=== PATIENT | male | born 1945 | race Caucasian/White ===

== ENCOUNTER 2024-03-13 13:55 | Inpatient (IN) | payer MEDICAID ==
[~2024-03-13] VITALS: Ht 172.7 cm; Wt 68.0 kg
[2024-03-13] MEDS ORDERED: CEFTRIAXONE /D5W 50ML IVPB **ER PYXIS IV ONE (14:18)
[2024-03-13] MEDS ORDERED: VANCOMYCIN IV 200 ML ONE (14:18)
[2024-03-13] MEDS: CEFTRIAXONE 1 G in IV DEXTROSE 5% 50 ML IV ONE (14:27)
[2024-03-13] MEDS: IV NORMAL SALINE 1000 ML BAG IV ONE (14:27)
[2024-03-13 14:39] LABS: BASOPHILS % (AUTO) 0.3 % (0.0-2.0); EOSINOPHILS % (AUTO) 0.2 % (0.0-7.0); HEMATOCRIT 32.6 % (36.7-47.1); HEMOGLOBIN 10.8 g/dL (12.5-16.3); LYMPHOCYTES % (AUTO) 28.7 % (20.5-51.5); MEAN CORPUSCULAR HEMOGLOBIN 31.5 uug (23.8-33.4); MEAN CORPUSCULAR HGB CONC 33 g/dL (32.5-36.3); MEAN CORPUSCULAR VOLUME 95.5 fL (73.0-96.2); MONOCYTES # (AUTO) 0.3 K/uL (0.1-1.30); MONOCYTES % (AUTO) 8.4 % (0.0-11.0); NEUTROPHILS # (AUTO) 2.2 K/uL (1.8-8.9); NEUTROPHILS % (AUTO) 62.4 % (38.5-71.5); PLATELET COUNT (AUTO) 221 K/uL (152-348); RED BLOOD CELL COUNT(AUTO) 3.42 MIL/uL (4.06-5.63); RED CELL DISTRIBUTION WIDTH 16.3 % (12.1-16.2); WHITE BLOOD COUNT (AUTO) 3.6 K/uL (3.6-10.2)
[2024-03-13 14:40] LABS: DIFFERENTIAL COMMENT 1
[2024-03-13 14:42] LABS: CALCIUM 9.1 mg/dL (8.5-10.1); CARBON DIOXIDE 23 mmol/L (21-32); CHLORIDE 105 mmol/L (98-107); CREATININE 0.9 mg/dL (0.6-1.3); GLUCOSE 126 mg/dL (74-106); POTASSIUM 4.2 mmol/L (3.5-5.1); SODIUM SERUM 140 mmol/L (136-145); UREA NITROGEN, BLOOD 16 mg/dL (7-18)
[2024-03-13] MEDS: VANCOMYCIN IV 1,000 MG in IV DEXTROSE 5% 250 ML IV ONE (14:53)
[2024-03-13 14:55] LABS: ALANINE AMINOTRANSFERASE 58 U/L (16-63); ALBUMIN 2.8 g/dL (3.4-5.0); ALKALINE PHOSPHATASE 248 U/L (50-136); ASPARTATE AMINOTRANSFERASE 17 U/L (15-37); BILIRUBIN,DIRECT 0.2 mg/dL (0.0-0.2); BILIRUBIN,TOTAL 0.3 mg/dL (0.2-1.0); NT-PRO BNP 214 pg/mL (0-125); TOTAL PROTEIN, SERUM 7.5 g/dL (6.4-8.2)
[2024-03-13] MEDS ORDERED: REMEDY ESSENTIAL ZINC PASTE 113 GM TP PRN (16:15)
[2024-03-13] MEDS ORDERED: MAGNESIUM HYDROXIDE 30 ML LIQUID UDC PO PRN (16:15)
[2024-03-13] MEDS ORDERED: ONDANSETRON 4 MG/2 ML VIAL IV PRN (16:15)
[2024-03-13 17:13] LABS: *BILIRUBIN,URIN NEGATIVE (NEGATIVE); *BLOOD, URINE NEGATIVE (NEGATIVE); *CLARITY,URINE CLEAR (CLEAR); *COLOR,URINE YELLOW (YELLOW); *KETONES,URINE NEGATIVE (NEGATIVE); *PROTEIN,URINE NEGATIVE (NEGATIVE); *UROBILINOGEN,URINE 0.2 E.U./dl (NORMAL); LEUKOCYTE ESTERASE ,URINE NEGATIVE (NEGATIVE); NITRITE, URINE NEGATIVE (NEGATIVE); PH,URINE 6.5 (5.0-8.0); UGLUCOSE NEGATIVE (NEGATIVE)
[2024-03-13 20:58] VITALS: BP 123/63; TEMP 97.7; O2SAT 98
[2024-03-13] MEDS ORDERED: IBUP-1490 PO (22:53)
[2024-03-13] MEDS ORDERED: DONE5TAB34 PO (22:53)
[2024-03-13] MEDS ORDERED: ASCO500T85 PO (22:53)
[2024-03-13] MEDS ORDERED: ALBU90AE INH (22:53)
[2024-03-13] MEDS ORDERED: MAGN400O6 PO ×2 (22:53)
[2024-03-13] MEDS ORDERED: HALO5TAB PO (22:53)
[2024-03-13] MEDS ORDERED: DOCU100T2 PO (22:53)
[2024-03-13] MEDS ORDERED: ZINC220T4 PO (22:53)
[2024-03-14] MEDS ORDERED: CLINDAMYCIN 600 MG PIGGYBACK**ER OMNI IV ONE ×2 (00:14→05:54)
[2024-03-14] MEDS: CLINDAMYCIN PHOSPHATE IV 600 MG in IV DEXTROSE 5% 100 ML IV SCH (00:27)
[2024-03-14 06:10] VITALS: BP 124/68; TEMP 97.6; O2SAT 99
[2024-03-14 06:45] LABS: BASOPHILS % (AUTO) 0.4 % (0.0-2.0); EOSINOPHILS % (AUTO) 0.3 % (0.0-7.0); HEMATOCRIT 30.6 % (36.7-47.1); HEMOGLOBIN 10.2 g/dL (12.5-16.3); LYMPHOCYTES # (AUTO) 0.9 K/uL (0.8-4.8); LYMPHOCYTES % (AUTO) 28.2 % (20.5-51.5); MEAN CORPUSCULAR HEMOGLOBIN 31.8 uug (23.8-33.4); MEAN CORPUSCULAR HGB CONC 33 g/dL (32.5-36.3); MEAN CORPUSCULAR VOLUME 95.4 fL (73.0-96.2); MONOCYTES # (AUTO) 0.4 K/uL (0.1-1.30); MONOCYTES % (AUTO) 11.4 % (0.0-11.0); NEUTROPHILS % (AUTO) 59.7 % (38.5-71.5); PLATELET COUNT (AUTO) 207 K/uL (152-348); RED CELL DISTRIBUTION WIDTH 15.4 % (12.1-16.2); WHITE BLOOD COUNT (AUTO) 3.3 K/uL (3.6-10.2)
[2024-03-14 06:58] LABS: DIFFERENTIAL COMMENT 1
[2024-03-14 07:12] LABS: CALCIUM 8.8 mg/dL (8.5-10.1); CREATININE 0.9 mg/dL (0.6-1.3); MAGNESIUM 2.2 mg/dL (1.8-2.4); POTASSIUM 4.5 mmol/L (3.5-5.1)
[2024-03-14 07:38] LABS: PHOSPHOROUS 2.8 mg/dL (2.5-4.9)
[2024-03-14] MEDS ORDERED: MAGNESIUM HYDROXIDE 30 ML LIQUID UDC PO PRN ×2 (10:15)
[2024-03-14] MEDS ORDERED: DOCUSATE SODIUM 100 MG CAPSULE PO PRN (10:15)
[2024-03-14] MEDS ORDERED: IBUPROFEN 600 MG TABLET PO PRN (10:15)
[2024-03-14 12:00] VITALS: BP 156/78; TEMP 98; O2SAT 99
[2024-03-14 15:55] VITALS: BP 120/78; TEMP 98; O2SAT 98
[2024-03-14] MEDS: HALOPERIDOL 5 MG TABLET PO SCH (17:10)
[2024-03-14 19:56] VITALS: BP 116/70; TEMP 98; O2SAT 99
[2024-03-14] MEDS: DONEPEZIL 5 MG TABLET PO SCH (20:36)
[2024-03-15 06:00] VITALS: BP 105/52; TEMP 98.1; O2SAT 98
[2024-03-15] MEDS: ZINC SULFATE 220 MG CAPSULE PO SCH (08:55)
[2024-03-15] MEDS: ASCORBIC ACID 500 MG TABLET PO SCH (08:56)
[2024-03-15 12:17] VITALS: BP 120/68; TEMP 97.6; O2SAT 99
[2024-03-15 16:14] VITALS: BP 118/67; TEMP 97.8; O2SAT 99
[2024-03-15 20:50] VITALS: BP 102/51; TEMP 98.1; O2SAT 98
[2024-03-16 05:40] VITALS: BP 129/65; TEMP 98.1; O2SAT 99
[2024-03-16 08:00] VITALS: BP 137/61; TEMP 97.4; O2SAT 99
[2024-03-16 12:00] VITALS: BP 123/78; TEMP 98.3; O2SAT 99
[2024-03-16 16:00] VITALS: BP 110/64; TEMP 97; O2SAT 97
[2024-03-16] MEDS: SODIUM HYPOCHLORITE 0.125% (QUARTER STRENGTH) 473 ML BOTTLE TP SCH (16:02)
[2024-03-17] MEDS: SILVER NITRATE APPLICATOR STICK EACH TP STA (11:38)
[2024-03-17] MEDS: LIDOCAINE 2%-EPI 1:100,000 20 ML VIAL TP STA (11:38)
[2024-03-17] MEDS: ACETAMINOPHEN 325 MG TABLET PO PRN (12:15)
[2024-03-17] MEDS ORDERED: CLIN300C12 PO (12:57)
[2024-03-17 15:50] VITALS: BP 116/63; TEMP 97.9; O2SAT 98
[2024-03-17] MEDS ORDERED: CLINDAMYCIN HCL 300 MG CAPSULE PO SCH (22:00)
== END 2024-03-17 16:40 | DRG 364 ==
LOC: ER 13:55 → MEDSURG3 20:06
PROVIDERS: ADMIT Internal Medicine; ATTEND Internal Medicine
PROC: 0HB1XZX Excision of Face Skin, External Approach, Diagnostic (ICD-10-PCS; principal; 2024-03-17)
PROC: 0J973ZX Drainage of Back Subcutaneous Tissue and Fascia, Percutaneous Approach, Diagnostic (ICD-10-PCS; principal; 2024-03-17)
PROC: 0KBG0ZZ Excision of Left Trunk Muscle, Open Approach (ICD-10-PCS; 2024-03-17)
DX: L02.414 Cutaneous abscess of left upper limb (principal); E43 Unspecified severe protein-calorie malnutrition; L03.312 Cellulitis of back [any part except buttock and flank]; F25.9 Schizoaffective disorder, unspecified; E88.09 Other disorders of plasma-protein metabolism, not elsewhere classified; G30.9 Alzheimer's disease, unspecified; C44.329 Squamous cell carcinoma of skin of other parts of face; F02.80 Dementia in other diseases classified elsewhere, unspecified severity, without behavioral disturbance, psychotic disturbance, mood disturbance, and anxiety; L03.211 Cellulitis of face; R53.81 Other malaise; Z87.891 Personal history of nicotine dependence; Z79.899 Other long term (current) drug therapy
CPT/HCPCS: 36415; 71045; 83605; 83735; 84100; 84484; 85025; 85730; 87040; 93005; A4606; A4663; A6209; G0378; J0696; J3370; J3490; J7040